=== PATIENT | female | born 1995 | race Caucasian/White ===

== ENCOUNTER 2018-12-07 08:22 | Emergency (ER) | payer OTHER ==
[~2018-12-07] VITALS: Ht 162.5 cm; Wt 86.2 kg
[2018-12-07] MEDS ORDERED: PREDNISONE20 M1 PO (12:39)
[2018-12-07] MEDS ORDERED: TESSALON PERLE100 M1 PO (12:39)
[2018-12-07] MEDS ORDERED: PROVENTIL HFA6.7 GM INH (12:39)
[2018-12-07] MEDS ORDERED: ZITHROMAX250 MG PO (12:39)
== END 2018-12-07 13:10 | disposition home or self-care (01) ==
LOC: ED 08:22
DX: J18.9 Pneumonia, unspecified organism (principal); H66.93 Otitis media, unspecified, bilateral